=== PATIENT | male | born 1960 | race Hispanic/Latino ===

== ENCOUNTER 2018-11-28 08:04 | Observation (INO) | payer MEDICAID ==
[2018-11-28] VITALS (24 sets, daily range): BP systolic 98–147; BP diastolic 60–105
[~2018-11-28 08:04] MED LIST: ASPI-1197 PO; DOXY100C40 PO; ESOM40CA PO
[2018-11-28 08:25] LABS: BASOPHILS % (AUTO) 0.8 % (0.0-5.0); EOSINOPHILS % (AUTO) 2.9 % (0.0-8.0); HEMATOCRIT 45.4 % (42-54); LYMPHOCYTES % (AUTO) 33.4 % (21.0-51.0); MEAN CORPUSCULAR HEMOGLOBIN 30.5 pg (27.0-33.0); MEAN CORPUSCULAR HGB CONC 33.8 g/dL (32.0-36.0); MEAN CORPUSCULAR VOLUME 90.5 fL (79-99); MONOCYTES % (AUTO) 7.5 % (3.0-13.0); NEUTROPHILS % (AUTO) 55.4 % (40.0-77.0); NUCLEATED RED BLOOD CELLS 0.1 % (0.0-0.19); PLATELET COUNT (AUTO) 211 K/uL (130-400); RED BLOOD CELL COUNT(AUTO) 5.02 MIL/uL (4.50-6.20); RED CELL DISTRIBUTION WIDTH 12.8 % (11.0-15.5); WHITE BLOOD COUNT (AUTO) 6.2 K/uL (4.8-10.8)
[2018-11-28 08:35] LABS: POTASSIUM 3.8 mmol/L (3.5-5.1)
[2018-11-28 08:40] LABS: ALBUMIN 3.7 g/dL (3.5-5.0); BILIRUBIN,TOTAL 0.4 mg/dL (0.2-1.0); TOTAL PROTEIN, SERUM 7.2 g/dL (6.0-8.3)
[2018-11-28] MEDS ORDERED: ONDANSETRON HCL 4 MG/2 ML VIAL ONE ×2 (09:12→16:10)
[2018-11-28] MEDS ORDERED: MORPHINE SULFATE 4 MG/1ML SYG ONE (09:13)
[2018-11-28 09:29] LABS: INR 0.98 (0.85-1.15); PARTIAL THROMBOPLASTIN TIME 24.7 SEC (26.3-35.5); PROTHROMBIN TIME 10.3 SEC (9.6-11.6)
[2018-11-28] MEDS ORDERED: CEFAZOLIN SODIUM 1 GM VIAL ONE ×2 (11:39→14:56)
[2018-11-28] MEDS ORDERED: SODIUM CHLORIDE 0.9% 1000ML 1,000 ML IV SCH (12:30)
[2018-11-28] MEDS ORDERED: LACTATED RINGERS 1000ML 1,000 ML IV ONE (12:40)
[2018-11-28] MEDS ORDERED: MIDAZOLAM HCL 1 MG/ML 2ML VIAL ONE (13:15)
[2018-11-28] MEDS ORDERED: FENTANYL CITRATE PF 50 MCG/1 ML 2ML VIAL ONE (13:16)
[2018-11-28] MEDS ORDERED: METOCLOPRAMIDE 10 MG/2 ML VIAL ONE (14:06)
[2018-11-28] MEDS ORDERED: ROPIVACAINE 0.5% 5MG/ML 30ML IJ ONE (14:34)
[2018-11-28] MEDS ORDERED: MEPERIDINE-PF 25 MG/ML SYG ONE (15:01)
[2018-11-28] MEDS ORDERED: EPHEDRINE SULFATE 50 MG/ML AMPULE ONE (15:17)
[2018-11-28] MEDS ORDERED: NEOSTIGMINE 5MG/5ML SYR IV ONE (16:08)
[2018-11-28] MEDS ORDERED: GLYCOPYRROLATE 1 MG/5 ML SYRINGE ONE (16:08)
[2018-11-28] MEDS: DEXTROSE 5%-LACTATED RINGERS 1,000 ML IV SCH ×2 (16:18→23:56)
[2018-11-28] MEDS ORDERED: PROMETHAZINE HCL 25 MG/ML 1ML AMPULE IM PRN (16:30)
[2018-11-28] MEDS ORDERED: NALOXONE HCL 0.4 MG/1 ML ML IVP PRN (16:30)
[2018-11-28] MEDS ORDERED: POTASSIUM CHLORIDE 20MEQ/100ML 100 ML IV PRN (16:30)
[2018-11-28] MEDS ORDERED: FERROUS FUMARATE 324 MG TABLET PO PRN (16:30)
[2018-11-28] MEDS ORDERED: HYDROCODONE/ACETAMINOPHEN 5/325 MG TAB PO PRN (16:30)
[2018-11-28] MEDS ORDERED: CALCIUM CARBONATE 500 MG TABLET PO PRN (16:30)
[2018-11-28] MEDS: ACETAMINOPHEN EXTRA STRENGTH 500 MG TABLET PO SCH ×2 (16:30→23:55)
[2018-11-28] MEDS ORDERED: POTASSIUM CHLORIDE 10% ELIXIR 20 MEQ/15 ML UDCUP PO PRN (16:30)
[2018-11-28] MEDS ORDERED: POTASSIUM CHLORIDE 20 MEQ ERTAB PO PRN (16:30)
[2018-11-28] MEDS ORDERED: MEPERIDINE 10MG/ML 50ML PCA 50 ML IV PRN (16:30)
[2018-11-28] MEDS ORDERED: LIDOCAINE HCL-MPF 1% 2ML VIAL IV PRN (16:30)
[2018-11-28] MEDS ORDERED: DIPHENHYDRAMINE HCL 25 MG CAPSULE PO PRN (16:30)
[2018-11-28] MEDS ORDERED: KETOROLAC TROMETHAMINE 30MG/ML IV PRN (16:30)
[2018-11-28] MEDS ORDERED: DiphenhydrAMINE HCL 50 MG/ML VIAL IVP PRN (16:30)
[2018-11-28] MEDS ORDERED: TEMAZEPAM 15 MG CAPSULE PO PRN (16:30)
--- NOTE | 2018-11-28 17:45 | NUR ---
POST SURGERY PATIENT RECEIVED FROM PACU IN STABLE CONDITION. HE HAS BEEN ORIENTED TO ROOM AND USE OF CALL LIGHT. DRESSING TO LEFT LEG IS DRY AND INTACT. IV IS PATENT INFUSING FLUIDS WITH NO REDNESS OR SWELLING NOTED TO SITE.
[2018-11-28] MEDS: CEFAZOLIN SODIUM 1 GM VIAL IVP SCH ×2 (18:06→23:56)
[2018-11-28] MEDS: SODIUM CHLORIDE 0.9% 1000ML 1,000 ML IV SCH (18:06)
[2018-11-28] MEDS: FAMOTIDINE 20MG TAB 20 MG TAB PO SCH (19:50)
[2018-11-28] MEDS: HYDROCODONE/ACETAMINOPHEN 5/325 MG TAB PO PRN (21:06)
[2018-11-29] MEDS: HYDROCODONE/ACETAMINOPHEN 5/325 MG TAB PO PRN ×3 (02:14→13:54)
[2018-11-29] MEDS: SODIUM CHLORIDE 0.9% 1000ML 1,000 ML IV SCH (02:14)
[2018-11-29 04:00] VITALS: BP 133/89
[2018-11-29 04:41] LABS: HEMATOCRIT 38.9 % (42-54); MEAN CORPUSCULAR HEMOGLOBIN 30.7 pg (27.0-33.0); MEAN CORPUSCULAR VOLUME 90.4 fL (79-99); PLATELET COUNT (AUTO) 195 K/uL (130-400); WHITE BLOOD COUNT (AUTO) 7.1 K/uL (4.8-10.8)
[2018-11-29 04:54] LABS: CREATININE 0.9 mg/dL (0.5-1.5); POTASSIUM 4.1 mmol/L (3.5-5.1)
[2018-11-29 07:43] VITALS: BP 126/56
[2018-11-29] MEDS: FAMOTIDINE 20MG TAB 20 MG TAB PO SCH (08:32)
[2018-11-29] MEDS: ACETAMINOPHEN EXTRA STRENGTH 500 MG TABLET PO SCH (08:34)
[2018-11-29] MEDS ORDERED: ENOXAPARIN SODIUM 40 MG/0.4 ML SYRINGE SQ SCH (09:00)
[2018-11-29] MEDS ORDERED: POLYETHYLENE GLYCOL 3350 17 GM POWD.PACK PO SCH (09:00)
[2018-11-29] MEDS ORDERED: TAMSULOSIN HCL 0.4 MG CAP.ER.24H PO SCH (09:00)
[2018-11-29 11:11] VITALS: BP 107/68
--- NOTE | 2018-11-29 12:00 | NUR ---
[facility]– [place] CM met with pt and girlfriend in room. Pt is independent prior to surgery, lives at home alone, girlfriend and son lives close by. Pt uses crutches at home, and has provider 14hrs/day. Denies any other equipments/services. Pt feels safe to go back home, provider, son and girlfriend able to assist with transportation and needs. Pt agreeable for HH and DME. DC plan to home w/HH and poss DME. CM to cont to follow up. Addendum: 11/29/18 at 1415 by RENETTA GUZMAN LVN CM Amended: Links added.
[2018-11-29] MEDS ORDERED: ASPI-1012 PO (12:50)
[2018-11-29] MEDS ORDERED: HYDR-2132 PO (12:50)
--- NOTE | 2018-11-29 13:34 | NUR ---
CM Note: [facility] pending approval PT and spouse agreeable for HH, GABRIEL signed for [facility]. Faxed order and clinicals, confirmation received. Spoke to Marky will check benefits once clinicals received. Pt pending approval. Primary nurse aware. CM to cont to follow up.
--- NOTE | 2018-11-29 14:11 | NUR ---
CM Note: [facility] approval and acceptance Spoke to Marky rueda/LIZ KO. Pt has approval and acceptance. Pt given crutches, tolerated ambulation, as per Dr Jacob garcia standard walker. Safe to dc to home via private car. Primary nurse aware. CM to cont to follow up.
--- NOTE | 2018-11-29 16:45 | NUR ---
INSTRUCTIONS DISCHARGE INSTRUCTIONS GIVEN TO PATIENT USING TEACH BACK. DRESSING TO LEFT LEG CHANGED PER MD ORDER. IV REMOVED WITH TIP INTACT. DIRECT PRESSURE APPLIED UNTIL BLEEDING CONTROLLED THEN SITE COVERED WITH GAUZE AND SECURED WITH A BAND-AID. F/U APPOINTMENT HAS BEEN MADE. NEW PRESCRIPTIONS WERE PLACED IN PACKET ALONG WITH ALL PRINTED INFORMATION AND MD INSTRUCTIONS. REPORT HAS BEEN CALLED TO [facility], SPOKE WITH IVANIA PANCHAL. NO QUESTIONS OR CONCERNS VOICED. PENDING RIDE HOME.
[2018-11-30] MEDS ORDERED: BISACODYL 5 MG TABLET.DR PO PRN (16:30)
[2018-12-01] MEDS ORDERED: BISACODYL 10 MG SUPP.RECT RC PRN (16:30)
== END 2018-11-29 17:39 | disposition home health service (06) ==
LOC: EDH 08:04 → EDHIP 08:05 → INTOOBSV 08:05 → 4AH 17:56
PROVIDERS: ADMIT Orthopaedic Surgery; ATTEND Orthopaedic Surgery
DX: S82.102A Unspecified fracture of upper end of left tibia, initial encounter for closed fracture (principal); I10 Essential (primary) hypertension; E78.00 Pure hypercholesterolemia, unspecified; X50.1XXA Overexertion from prolonged static or awkward postures, initial encounter; Y93.89 Activity, other specified; Y92.009 Unspecified place in unspecified non-institutional (private) residence as the place of occurrence of the external cause; Y99.8 Other external cause status; Z79.899 Other long term (current) drug therapy
CPT/HCPCS: 27535; 36415 ×2; 73562; 73590 ×2; 80048; 80053; 85025; 85027; 85610; 85730; 93005; 96372; 96374; 96375; 96376; 97039; 97116 ×2; 97161; 99284; A4215; A4216; A4221; A4222; A4223; A4344; A4600; A4649 ×4; A4930 ×2; A6223; C1713 ×13; C1776 ×2; G0378 ×24; G8978; G8979; G8980; G8981; G8982; G8983; J0690 ×4; J1650; J1885; J2175; J2250; J2270; J2405 ×2; J2710; J2765; J2795; J3490 ×2; J7030; J7120; J3010

== ENCOUNTER 2023-08-08 16:06 | Emergency (ER) | payer MEDICAID ==
[~2023-08-08] VITALS: Ht 167.6 cm; Wt 81.6 kg
[~2023-08-08 16:06] MED LIST changes: +ACET-2079 PO; +ASPI-1012 PO; -ASPI-1197 PO; +ATOR20TA65 PO; -DOXY100C40 PO; -ESOM40CA PO; +HYDR-2132 PO; +LOSA50TA64 PO
[2023-08-08 16:52] LABS: APPEARANCE,URINE CLEAR (CLEAR); BILIRUBIN,URINE NEGATIVE (NEGATIVE); COLOR,URINE YELLOW (YELLOW); GLUCOSE, URINE (UA) NEGATIVE (NEGATIVE); KETONES,URINE NEGATIVE (NEGATIVE); LEUKOCYTE ESTERASE ,URINE NEGATIVE Leu/uL (NEGATIVE); NITRATE,URINE NEGATIVE (NEGATIVE); OCCULT BLOOD,URINE SMALL (NEGATIVE); PROTEIN,URINE 10 mg/dL (NEGATIVE); UROBILINOGEN,URINE 0.2 mg/dL (0.2-1.0)
[2023-08-08 16:54] LABS: ADD UA MICROSCOPIC YES
[2023-08-08 17:00] LABS: MUCUS,URINE RARE LPF (None Seen); SQUAMOUS EPITHELIAL CELL,UR RARE /HPF (0-2); WBC,URINE 0-1 /HPF (0-1)
[2023-08-08 17:28] LABS: BASOPHILS # (AUTO) 0.06 K/uL (0.00-0.20); BASOPHILS % (AUTO) 0.7 % (0.0-5.0); EOSINOPHILS # (AUTO) 0.35 K/uL (0.00-0.70); EOSINOPHILS % (AUTO) 4.1 % (0.0-8.0); HEMATOCRIT 42.7 % (42-54); IMMATURE GRANULOCYTE ABSOLUTE 0.02 K/uL (0-1); LYMPHOCYTES # (AUTO) 1.4 K/uL (1.0-4.8); LYMPHOCYTES % (AUTO) 16.5 % (21.0-51.0); MEAN CORPUSCULAR HEMOGLOBIN 30.4 pg (27.0-33.0); MEAN CORPUSCULAR HGB CONC 33.7 g/dL (32.0-36.0); MEAN CORPUSCULAR VOLUME 90.1 fL (79-99); MONOCYTES # (AUTO) 0.8 K/uL (0.1-1.0); MONOCYTES % (AUTO) 9.5 % (3.0-13.0); NEUTROPHILS # (AUTO) 5.9 K/uL (1.8-7.7); PLATELET COUNT (AUTO) 191 K/uL (130-400); RED BLOOD CELL COUNT(AUTO) 4.74 MIL/uL (4.50-6.20); RED CELL DISTRIBUTION WIDTH 12.6 % (11.0-15.5); WHITE BLOOD COUNT (AUTO) 8.5 K/uL (4.8-10.8)
[2023-08-08 17:36] LABS: CREATININE 0.8 mg/dL (0.5-1.3); POTASSIUM 3.9 mmol/L (3.5-5.1)
[2023-08-08 17:47] LABS: ALBUMIN 3.9 g/dL (3.5-5.0); BILIRUBIN,TOTAL 0.3 mg/dL (0.2-1.0); TOTAL PROTEIN, SERUM 7.2 g/dL (6.0-8.3)
[2023-08-08] MEDS: ONDANSETRON ODT 4MG TAB SL ONE (18:24)
[2023-08-08] MEDS: KETOROLAC 30MG VIAL (30MG/ML) IM ONE (18:25)
[2023-08-08] MEDS: MORPHINE 2 MG SYG IM ONE (18:25)
[2023-08-08] MEDS ORDERED: GABA300S3 PO (19:00)
[2023-08-08] MEDS ORDERED: KETO10TA2 PO (19:00)
[2023-08-08] MEDS ORDERED: CYCL5TAB PO (19:00)
[2023-08-08 19:41] VITALS: BP 154/85; PULSE 80; RESP 18; O2SAT 97
== END 2023-08-08 19:44 | disposition home or self-care (01) ==
LOC: EDH 16:06
DX: M54.32 Sciatica, left side (principal); R31.29 Other microscopic hematuria; E78.00 Pure hypercholesterolemia, unspecified; I10 Essential (primary) hypertension; Z79.82 Long term (current) use of aspirin; Z79.899 Other long term (current) drug therapy
CPT/HCPCS: 99285; 74176; 80053; 83690; 85025; 81001; 36415; 96372 ×2; J2270; J1885

== ENCOUNTER 2023-11-30 11:10 | Emergency (ER) | payer MEDICAID ==
[~2023-11-30] VITALS: Ht 175.3 cm; Wt 82.6 kg
[~2023-11-30 11:10] MED LIST changes: +CYCL5TAB PO; +GABA300S3 PO; +KETO10TA2 PO
[2023-11-30] MEDS: NEOMY SULF/BACITRA/POLYMYXIN B 1 EACH PACKET TP ONE (12:02)
[2023-11-30] MEDS: LIDOCAINE HCL 1% 20 ML VIAL INJ SCH (12:02)
[2023-11-30 13:19] VITALS: BP 157/90; PULSE 80; RESP 16; TEMP 98; O2SAT 98
== END 2023-11-30 13:32 | disposition home or self-care (01) ==
LOC: EDH 11:10
DX: R22.42 Localized swelling, mass and lump, left lower limb (principal); I10 Essential (primary) hypertension; Z79.82 Long term (current) use of aspirin; Z79.899 Other long term (current) drug therapy; Z98.890 Other specified postprocedural states